=== PATIENT | male | born 2000 | race African-American/Black ===

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

== ENCOUNTER 2022-06-07 14:48 | Outpatient (CLI) | payer OTHER, BC, SELFPAY ==
--- NOTE | ~2022-06-07 | CT_ITS ---
Noncontrast CT scan of the right wrist CLINICAL HISTORY: Scaphoid fracture TECHNIQUE: Axial noncontrast imaging of the right wrist was performed. Sagittal and coronal reformatt ed images were performed. Dose reduction technique was used on this scan by utilizing automated expos ure control and iterative reconstruction technique. The dose-length product (DLP) was 320.11 mGy-cm. Findings: There is a transverse, nondisplaced fracture through the waist of the scaphoid. Osseous ali gnment remains near anatomic. Questionable minimal increased sclerosis of the proximal scaphoid pole. Remaining osseous structures are intact. Joint spaces are intact. Flexor and extensor tendons are grossly intact. No distinct soft tissue abnormality identified. No ma ss lesion or fluid collection evident. IMPRESSION: Transverse, nearly nondisplaced fracture through the waist of the scaphoid. Questionable minimal increased sclerosis of the proximal scaphoid pole. If there is any concern for e taylor changes of AVN of the proximal pole, then consider MR to better evaluate the underlying marrow s ignal characteristics. Reviewed, dictated and finalized at location M. IMPRESSION: Transverse, nearly nondisplaced fracture through the waist of the scaphoid. Questionable minimal increased sclerosis of the proximal scaphoid pole. If ther e is any concern for early changes of AVN of the proximal pole, then consider M R to better evaluate the underlying marrow signal characteristics.
== END 2022-06-07 14:49 | disposition home or self-care (01) ==
PROVIDERS: PCP Internal Medicine; Visit Provider Orthopaedic Surgery Hand Surgery
DX: S62.001D Unspecified fracture of navicular [scaphoid] bone of right wrist, subsequent encounter for fracture with routine healing (principal); T14.90XD Injury, unspecified, subsequent encounter
CPT/HCPCS: 73200

== ENCOUNTER 2022-08-21 10:58 | Outpatient (CLI) | payer OTHER, BC, SELFPAY ==
--- NOTE | ~2022-08-21 | XR_ITS ---
XR chest 2V DATE: 08/21/2022 11:21 INDICATION: Cough for 2 months. Shortness of breath. TECHNIQUE: PA and lateral views COMPARISON: 04/12/2004 portable AP chest FINDINGS: Normal heart size. No hilar or mediastinal enlargement. No pulmonary infiltrate or consolid ation, pleural effusion or pulmonary vascular congestion or pneumothorax. IMPRESSION: No active cardiopulmonary disease Reviewed, dictated and finalized at location B.
== END 2022-08-21 10:59 | disposition home or self-care (01) ==
PROVIDERS: PCP Internal Medicine; Visit Provider Internal Medicine
DX: R05.9 Cough, unspecified (principal)
CPT/HCPCS: 71046

== ENCOUNTER 2023-12-08 17:34 | Emergency (ER) | payer OTHER, SELFPAY ==
--- NOTE | ~2023-12-08 | CT_ITS ---
EXAMINATION: CT brain wo con DATE: 12/08/2023 18:12 INDICATION: Head injury TECHNIQUE: Computed tomographic angiography (CTA) of the head was performed without and with 100 mL O mnipaque-350 intravenous contrast. Exam dose: 605.33 mGy-cm total exam DLP. Volume-rendered and ma ximum intensity projection 3D reconstructions of the intracranial arteries were created by the techno logist on a separate workstation. COMPARISON: 04/12/2004 CT brain FINDINGS: No intracranial mass lesion or hemorrhage or cerebrovascular accident, midline shift or mas s effect is evident. Normal ventricular size. Normal covington-white matter differentiation. No subdural or epidural hematoma. The orbital contents are unremarkable. There is soft tissue thickening in the inferomedial aspect of the left frontal sinus and left frontoe thmoid area. There is extensive opacification of the left ethmoid air cells and opacification of the upper aspect of the included left maxillary sinus. The included paranasal sinuses and mastoid air cells are otherwise normally developed and aerated. No fracture or bone destruction of the cranial vault. IMPRESSION: No acute intracranial abnormality or skull fracture Left frontal, ethmoid and maxillary sinusitis Reviewed, dictated and finalized at Location A. Reviewed, dictated and finalized at location A.
[2023-12-08 17:36] VITALS: BP 137/107; PULSE 90; RESP 18; TEMP 36.8; O2SAT 100
--- NOTE | 2023-12-08 18:56 | ED.GENADULT ---
HPI - General Adult General Chief complaint: Head Injury Stated complaint: Head Injury Time Seen by Provider: 12/08/23 17:51 History of Present Illness HPI narrative: Patient is a 23-year-old male who presents to the emergency department this afternoon complaining of a headache after sustaining a head injury while playing soccer. Patient states that he was trying to hit the ball with his head and another player got in the way causing the patient to trip and fall backward hitting the back of his head on the ground. Patient states that he was told that he was out for approximately 10 seconds. Patient states that he was able to get up after a while and has been ambulating since then without any issues. Patient states initially shortly after the head injury he did have some floaters in his vision and felt slightly dizzy but those symptoms have now resolved. Patient denies any focal weakness, numbness and tingling. Denies any issues with gait and denies any ataxia. Patient is complaining of mild scrotal pain which he believes is due to being hit by another player. No additional symptoms or concerns at this time. Related Data Home Medications Medication Instructions Recorded Confirmed hydrocodone 2.5 mg-acetaminophen 1 tablet PO Q6H PRN 04/06/23 04/06/23 325 mg tablet ondansetron HCl 4 mg tablet 4 mg PO Q6H 04/06/23 04/06/23 Allergies Allergy/AdvReac Type Severity Reaction Status Date / Time No Known Allergies Allergy Unknown Verified 12/08/23 17:40 Review of Systems Review of Systems: All systems are reviewed and are negative unless stated otherwise in the HPI. [facility] Family History Family History Grandparent Diabetes mellitus Social History Social History Smoking status: Never smoker Alcohol intake: current Alcohol use details: varies Lack of Transportation: No Lack of Food: Never True Current Housing: I Have Housing Concerned About Future Housing: No Difficulty Paying Gas/Electric Bills: No Difficulty Paying for Meds: No Currently Unemployed: No Education: High School Diploma/GED Difficulty w/ Childcare or Family Care: No Exam Narrative: General: Alert, awake, afebrile, in no acute distress. HEENT: PERRL, no rhinorrhea, no post nasal drip, oropharynx clear. Cardiovascular: Regular rate and rhythm, no murmurs, rubs or gallops, no peripheral edema. Respiratory: Clear to auscultation bilaterally, no tachypnea, no wheezing, no rhonchi, no rubs, no respiratory distress. Abdomen: Soft, nontender, nondistended, no rebound, no guarding, no peritoneal signs. Genital: Exam performed of presence of female nurse archives technician revealing normal male external genitalia, no tenderness to palpation, swelling or ecchymosis. Musculoskeletal: No joint swelling or deformity, normal muscle tone. Back: No midline tenderness to palpation over the cervical, thoracic, and lumbar spine, no step-offs or deformities. Skin: No rashes or petechia, no signs of infection. Neurological: Alert and oriented to person, place, and time. Follows all commands. 5/5 motor strength in the bilateral upper and lower extremity, sensation intact bilateral upper and lower extremity, speech is clear and fluent, gait intact and normal. Course Vital Signs Vital signs: Vital Signs Temperature 98.3 F 12/08/23 17:36 Pulse Rate 90 12/08/23 17:36 Respiratory Rate 18 12/08/23 17:36 Blood Pressure 137/107 H 12/08/23 17:36 Pulse Oximetry 100 12/08/23 17:36 Oxygen Delivery Room Air 12/08/23 17:36 Temperature 98.3 F 12/08/23 17:36 Pulse Rate 90 12/08/23 17:36 Respiratory Rate 18 12/08/23 17:36 Blood Pressure 137/107 H 12/08/23 17:36 Pulse Oximetry 100 12/08/23 17:36 Oxygen Delivery Room Air 12/08/23 18:10 Medical Decision Making MDM Narrative Medical decision making narrative:
== END 2023-12-08 19:15 | disposition home or self-care (01) ==
PROVIDERS: Emergency Provider Emergency Medicine; PCP Internal Medicine
DX: S09.90XA Unspecified injury of head, initial encounter (principal); W01.0XXA Fall on same level from slipping, tripping and stumbling without subsequent striking against object, initial encounter; Y93.66 Activity, soccer; J32.2 Chronic ethmoidal sinusitis; J32.1 Chronic frontal sinusitis; J32.0 Chronic maxillary sinusitis
CPT/HCPCS: 70450; 99284

== ENCOUNTER 2024-01-30 23:22 | Emergency (ER) | payer OTHER, SELFPAY ==
[2024-01-30 23:27] VITALS: BP 137/77; PULSE 83; RESP 16; TEMP 36.9; O2SAT 98
[2024-01-31] MEDS: AMOXICILLIN/CLAVULANATE K 875-125 MG TAB 1 TABLET PO (00:21)
[2024-01-31] MEDS: TETANUS,DIPHTHERIA,AC PERTUSSIS ADULT (0.5 ML) BOOSTRIX IM (00:24)
--- NOTE | 2024-01-31 00:25 | ED.ANIMALBIT ---
HPI - Animal Bite General Chief Complaint: Animal Bite Stated Complaint: Dog bite Time Seen by Provider: 01/30/24 23:44 Source: patient Mode of arrival: ambulatory Limitations: no limitations History of Present Illness HPI narrative: Patient is a 23-year-old male who presents the ED with report of dog bite to his right wrist. Patient reports he was bit by his own dog. He states his dog was startled by an animal that was outside. He sustained a puncture wound and laceration to his right volar wrist. Dog is up-to-date on its vaccines. Patient's tetanus status is not up-to-date. Patient denies any other injuries. No numbness. Related Data Home Medications Medication Instructions Recorded Confirmed hydrocodone 2.5 mg-acetaminophen 1 tablet PO Q6H PRN 04/06/23 04/06/23 325 mg tablet ondansetron HCl 4 mg tablet 4 mg PO Q6H 04/06/23 04/06/23 Allergies Allergy/AdvReac Type Severity Reaction Status Date / Time No Known Allergies Allergy Unknown Verified 12/08/23 17:40 Review of Systems Review of Systems: All systems reviewed & are unremarkable except as noted in HPI. All systems reviewed & are unremarkable except as noted in HPI and below PMFSH Family History Family History Grandparent Diabetes mellitus Social History Social History Smoking status: Never smoker Alcohol intake: current Alcohol use details: varies Lack of Transportation: No Lack of Food: Never True Current Housing: I Have Housing Concerned About Future Housing: No Difficulty Paying Gas/Electric Bills: No Difficulty Paying for Meds: No Currently Unemployed: No Education: High School Diploma/GED Difficulty w/ Childcare or Family Care: No Exam Narrative: GENERAL: Well appearing, well-nourished, non-toxic, in no acute distress. HEAD: Normocephalic, atraumatic. RESPIRATORY: Airway patent, respirations nonlabored. CARDIOVASCULAR: Regular rate and rhythm. Radial pulses intact and easily palpable. MUSCULOSKELETAL: Moves all extremities. No gross deformities. Small puncture wound with superficial abrasion crossing through puncture wound to right volar wrist. No active bleeding. No deeper lacerations. No FB. Sensation intact. Old previous scar to volar wrist from previous surgery. SKIN: Warm, dry, normal color. NEURO: A&O X3. Speech clear. No ataxic movements. PSYCHIATRIC: Appropriate mood and affect. Normal interaction. Course Vital Signs Vital signs: Vital Signs Temperature 98.5 F 01/30/24 23:27 Pulse Rate 83 01/30/24 23:27 Respiratory Rate 16 01/30/24 23:27 Blood Pressure 137/77 01/30/24 23:27 Pulse Oximetry 98 01/30/24 23:27 Temperature 98.5 F 01/30/24 23:27 Pulse Rate 83 01/30/24 23:27 Respiratory Rate 16 01/30/24 23:27 Blood Pressure 137/77 01/30/24 23:27 Pulse Oximetry 98 01/30/24 23:27 MDM - Animal Bite MDM Narrative Medical decision making narrative: Tetanus updated in the ER. Patient started on Augmentin. Rx sent to pharmacy. Dog is up-to-date on its vaccines. Wound is superficial and does not require repair or further imaging. Patient given wound care instructions and return precautions. Discharged in stable condition. Patient also mentioned having a cough for the past 1 week. Offered to obtain viral swabs or chest x-ray, however patient politely declined. Irish Schmidt sent to pharmacy. Discussed further fyst-jdd-swtyyri therapies to try. Medical Records Attestation: I reviewed the patient's medical records. Discharge Plan Discharge Clinical Impression: Dog bite Patient Disposition: Home, Self-Care Condition: Stable Instructions: Antibiotic Form, Animal Bite (ED) Additional Instructions: Take antibiotics as prescribed. Recommend ice to wrist, Tylenol/ibuprofen as needed for pain. Wash wound daily with soap and water. Bandage if needed. Monitor for signs of infection, such as drainage, warm sensation to wrist, redness streaking up or down arm, fevers, or any other symptoms of concern. Prescriptions: New amoxicillin-pot clavulanate 875-125 mg tablet 1 tablet PO Q12H 7 Days Qty: 14 0RF benzonatate 200 mg capsule 200 mg PO TID PRN (Reason: cough) Qty: 20 0RF No Action hydrocodone-acetaminophen 2.5-325 mg tablet 1 tablet PO Q6H PRN ondansetron HCl 4 mg tablet 4 mg PO Q6H fluticasone propion-salmeterol [Advair Diskus] 100-50 mcg/dose blister with device 1 inh inhalation Q12H Qty: 60 0RF Follow-up/Referrals: Misha Salgado DO [Primary Care Provider] - Stand Alone Forms: Work/School Release IP Time of Disposition: 00:27
== END 2024-01-31 00:32 | disposition home or self-care (01) ==
PROVIDERS: Emergency Provider Physician Assistant; PCP Internal Medicine
DX: S60.871A Other superficial bite of right wrist, initial encounter (principal); W54.0XXA Bitten by dog, initial encounter; Z23 Encounter for immunization
CPT/HCPCS: 90471; 90715; 99283; A9270

== ENCOUNTER 2024-04-24 11:52 | Emergency (ER) | payer OTHER, SELFPAY ==
--- OUTSIDE RECORDS SUMMARY | 2024-04-24 11:56 | XMS_ITS | Clinical Summary ---
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 Gender Identity Not on file Sexual Orientation Not on file Plan of Treatment Health Maintenance Due Date Last Done Comments Annual Physical 2004 HPV Vaccines (1 - Male 3-dos e series) 2016 Meningococcal B Vaccine (1 o f 2 - Standard) 2017 Hepatitis C 2019 DTaP, Tdap and Td Vaccines ( 1 - Tdap) 2020 Hepatitis B Vaccines (1 of 3 - 19+ 3-dose series) 2020 COVID-19 Vaccine ( - 2023-2 5 season) 2023 Influenza Adult (#1) 2023 Meningococcal Vaccine Aged Out No kane wilberto eligible based on patient's age to complete this topic Pneumococcal Vaccine: Pediat rics (0 to 5 Years) and At-Risk Patients (6 to 64 Years) Aged Out No longer eligible b ased on patient's age to complete this topic RSV Immunizations Under 20 Months Aged Out No longer eligible based on patient's age to complete this topic
--- OUTSIDE RECORDS SUMMARY | 2024-04-24 11:56 | XMS_ITS | Clinical Summary ---
Author Organization [facility] Address [address] [place] [address] Care Team Providers Care Foster Care Therapist Name Role Phone Selena Mckeon MD Primary Care Provider [phone] Allergies No known active allergies Medications irkcnnis-ccbl-UX -calcium-mins 27 mg iron-400 mcg tablet Active EPIDUO FORTE 0.3-2.5 % gel with pump APPLY TO FACE QHS 2 09/27/2017 Active Active Problems Problem Noted Date Diagnosed Date Pelvis tilted 09/07/2016 Immunizations Name Administration Dates Next Due DTaP 07/19/2002,2001,2001 ,2001 DTaP, Unspecified 11/23/2006 HPV, Quadrivalent 08/05/2014,11/05/2013,08/02/19 14 Hep A, Unspecified 06/21/2007,11/23/2006 Hep B / HiB 04/14/2002,2001,2001 Hep B, Unspecified 06/21/2007 IPV 2001,2001,2001 Influenza, Unspecified 04/14/2002,02/11/2002 MMR 11/23/2006,04/14/2002 Meningococcal B, unspecified 03/14/2018,09/06/19 18 Meningococcal MCV4P (Menactra) 09/05/2017,2012 Pneumococcal Conjugate 7-Valent 04/14/2002,10/12,2001,2001 Tdap 07/31/2012 Varicella 11/23/2006,07/19/2002 Surgical History Surgery Date Site/Laterality Comments ARM SURGERY 03/19/2005 - 03/18/2006 Medical History Medical History Date Comments Personal history of other di seases of the musculoskeletal system and connective tissue History of scoliosis - (Adde d by TW Conv) 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 - (Added by TW Conv) H/O febrile seizure 2004 Family History Medical History Relation Name Comments No Known Problems Father Low Back Pain Mother Family history of low back pain - (Added by TW Conv) Relation Name Status Comments Father Mother Social History Tobacco Use Types Packs/Day Years Used Date Smoking Tobacco: Never Smokeless Tobacco: Never Sex and Gender Information Value Date Recorded Sex Assigned at Not on file 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 Gender Identity Not on file Sexual Orientation Not on file Obstetrics History Last Filed Vital Signs Vital Sign Reading Time Taken Comments Blood Pressure 136/80 03/10/2023 6:03 PM FOOD PRODUCTION WORKER Pulse 68 03/10/2023 6:03 PM FOOD PRODUCTION WORKER Temperature 36.6 C (97.8 F) 03/10/2023 6:03 PM FOOD PRODUCTION WORKER Respiratory Rate 20 03/10/2023 6:03 PM FOOD PRODUCTION WORKER Oxygen Saturation 99% 03/10/2023 6:03 PM FOOD PRODUCTION WORKER Inhaled Oxygen Concentration - - Weight 104.3 kg (230 lb) 03/10/2023 6:03 PM FOOD PRODUCTION WORKER Height 187.2 cm (6' 1.7 ) 11/19/2019 3:01 PM CDT Body Mass Index 29.77 11/19/2019 3:01 PM CDT Plan of Treatment Health Maintenance Due Date Last Done Comments Depression Screening 2001 Hepatitis C Screening 2001 Meningococcal B Vaccine (1 o f 2 - Patient Seeks Protection) 2017 03/14/2018, 09/05/2017 Regular Well Visit/Exam 18-64 2019 DTaP/Tdap/Td Vaccine (7 - Td or Tdap) 07/31/2022 07/31/2012, 11/23/2006, 07/19/2002, Additional history exists Influenza Vaccine (#1) 2023 04/14/2002, 2001 Pneumococcal vaccine <65 Completed 003, 2001, 2001, Additional history exists Varicella Vaccines Completed 11/23/2006, 07/19/2002 Hepatitis B Screening Completed 06/21/2007 , 04/14/2002, 2001, Additional history exists HPV Vaccines Completed 08/05/2014, 10/18, 08/01/2013 Insurance [id number] [place] [address] [facility] ACCESS Member Subscriber Plan / Payer (Ef fective 2018-Present) Name:Lot[employer] Sherry Ashok Relation to Subscriber:Other Relationship Name:RASHEEDA GAUTAM Subscriber ID:Not on file Date of :1971 Phone:[phone] (Home) Address: [address] [place] [address] Payer ID:[id number] (NAIC) Type:BC SUDHAKAR Address: [address] [employer]M ACCESS Member Subscriber Plan / Payer ( fective 2018-Present) Name:AleenaSherry robert Ashok Relation to Subscriber:Other Relationship Name:ALEENASABINAMANUELPAULINA Subscriber ID:Not on file Date of :1971 (Home) [facility] [address] [facility] [place] [address] Payer ID:[id number] (NAIC) Type:[facility] Address: [address] Care Teams Foster Care Therapist Relationship Specialty Start Date End Date Selena Mckeon MD [address] [place] [address] PCP - General 09/15/16
--- OUTSIDE RECORDS SUMMARY | 2024-04-24 11:56 | XMS_ITS | Referral Summary ---
Author Organization [facility] Address [address] [place] [address] Care Team Providers Care Hard Candy Batch Mixer Name Role Phone Selena Mckeon MD Primary Care Provider [phone] Allergies No known active allergies Medications holqcoii-axcu-WM -calcium-mins 27 mg iron-400 mcg tablet Active [...] Conjugate 7-Valent 04/14/2002,10/12,2001,2001 Tdap 07/31/2012 Varicella 11/23/2006,07/19/2002 Social History Tobacco Use Types Packs/Day Years Used Date Smoking Tobacco: Never Smokeless Tobacco: Never Sex and Gender Information Value Date Recorded Sex Assigned at Not on file 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 Gender Identity Not on file Sexual Orientation Not on file Last Filed Vital Signs Vital Sign Reading Time Taken Comments Blood Pressure 136/80 03/10/2023 6:03 PM CERTIFIED BENCH JEWELER TECHNICIAN Pulse 68 03/10/2023 6:03 PM CERTIFIED BENCH JEWELER TECHNICIAN Temperature 36.6 C (97.8 F) 03/10/2023 6:03 PM CERTIFIED BENCH JEWELER TECHNICIAN Respiratory Rate 20 03/10/2023 6:03 PM CERTIFIED BENCH JEWELER TECHNICIAN Oxygen Saturation 99% 03/10/2023 6:03 PM CERTIFIED BENCH JEWELER TECHNICIAN Inhaled Oxygen Concentration - - Weight 104.3 kg (230 lb) 03/10/2023 6:03 PM CERTIFIED BENCH JEWELER TECHNICIAN Height 187.2 cm (6' 1.7 ) 11/19/2019 3:01 PM CDT Body Mass Index 29.77 11/19/2019 3:01 PM CDT Plan of Treatment Not on file Insurance [facility] [employer]M ACCESS Member Subscriber Plan / Payer ( fective 2018-Present) Name:Sherry Gautam Ashok Relation to Subscriber:Other Relationship Name:RASHEEDA GAUTAM Subscriber ID:Not on file Date of :1971 Phone:[phone] (Home) Address: [address] [place] [address] Payer ID:[id number] (NAIC) Type:myQaa Address: [address] [employer]M ACCESS Member Subscriber Plan / Payer ( fective 2018-Present) Name:Sherry Gautam Ashok Relation to Subscriber:Other Relationship Name:ALEENARASHEEDA MUHAMMAD Subscriber ID:Not on file Date of :1971 (Home) Address: [address] [place] [address] Payer ID:[id number] (NAIC) Type:myQaa Address: [address] Care Teams Hard Candy Batch Mixer Relationship Specialty Start Date End Date Selena Mckeon MD [address] [place] [address] PCP - General 09/15/16
[2024-04-24 12:05] VITALS: BP 142/69; PULSE 107; RESP 16; TEMP 36.9; O2SAT 99
--- NOTE | 2024-04-24 13:54 | ED_ITS ---
HPI - URI/Sore Throat General Chief Complaint: Upper Respiratory Infection <Amanda Diaz PA-C - Last Filed: 04/24/24 14:03> Stated Complaint: upper respiratory symptoms <Amanda Diaz PA-C - Last Filed: 04/24/24 14:03> Time Seen by Provider: 04/24/24 13:54 <DAYAN Samayoa Last Filed: 04/24/24 14:03> Focused HPI: Patient is a 24 y/o male who presents to the ED with c/o URI sx's. Patient reports he has been sick for the past 1.5 weeks with chills, sore throat, body aches, fatigue, mild cough, rhinorrhea, congestion. States sx's seemed to be improving but became worse again yesterday after working outside. Denies fevers, SOB, difficulty swallowing or breathing. GENERAL: Well-appearing, well-nourished, and in no acute distress. HEAD: Normocephalic, atraumatic. ENT: Mild posterior pharynx erythema. Tonsillar enlargement bilaterally. Uvula is still midline. No protrusion of soft palate. No significant exudate. Toleraing secretions. No stridor. Slight muffled quality to voice. Rhinorrhea. CHEST: Clear to auscultation. ?No respiratory distress. HEART: Regular rate and rhythm.? NEURO: ?Alert and oriented x3. Patient screened in triage and initial orders placed.? ?Additional care and disposition to be based upon?diagnostic testing and treatment. <Amanda Diaz PA-C - Last Filed: 04/24/24 14:03> Source: patient <DAYAN Samayoa Last Filed: 04/24/24 14:03> Mode of arrival: ambulatory <Amanda Diaz PA-C - Last Filed: 04/24/24 14:03> Limitations: no limitations <DAYAN Samayoa Last Filed: 04/24/24 14:03> History of Present Illness HPI Narrative: agree with the HPI as described above. <Sammy Eason MD - Last Filed: 04/25/24 00:36> Related Data Home Medications: Home Medications ?Medication ?Instructions ?Recorded ?Confirmed ?Last Taken ?Type ondansetron HCl 4 mg tablet 4 mg PO Q6H 04/06/23 02/29/24 Unknown History <Amanda Diaz PA-C - Last Filed: 04/24/24 14:03> Allergies/Adverse Reactions: Allergies Allergy/AdvReac Type Severity Reaction Status Date / Time No Known Allergies Allergy Unknown Verified 04/24/24 12:08 <Amanda Diaz PA-C - Last Filed: 04/24/24 14:03> Review of Systems Review of Systems: As reviewed above <Sammy Eason MD - Last Filed: 04/25/24 00:36> PMF Family History Family History: Family History Grandparent Diabetes mellitus <Amanda Diaz PA-C - Last Filed: 04/24/24 14:03> Social History Social History: Social History Smoking status: Never smoker Alcohol intake: current Alcohol use details: varies Lack of Transportation: No Lack of Food: Never True Current Housing: I Have Housing Concerned About Future Housing: No Difficulty Paying Gas/Electric Bills: No Difficulty Paying for Meds: No Currently Unemployed: No Education: High School Diploma/GED Difficulty w/ Childcare or Family Care: No <Amanda Diaz PA-C - Last Filed: 04/24/24 14:03> Exam Narrative: GENERAL: Well-appearing, well-nourished, and in no acute distress. HEAD: Normocephalic, atraumatic. ENT: Mild posterior pharynx erythema. Tonsillar enlargement bilaterally. Uvula is still midline. No protrusion of soft palate. No significant exudate. Tolerating secretions. No stridor. Slight muffled quality to voice. Rhinorrhea. CHEST: Clear to auscultation. ?No respiratory distress. HEART: Regular rate and rhythm.? NEURO: ?Alert and oriented x3. <Sammy Eason MD - Last Filed: 04/25/24 00:36> Course Vital Signs Vital signs: Vital Signs Temperature 36.9 C 04/24/24 12:05 Pulse Rate 107 H 04/24/24 12:05 Respiratory Rate 16 04/24/24 12:05 Blood Pressure 142/69 H 04/24/24 12:05 Pulse Oximetry 99 04/24/24 12:05 Oxygen Delivery Room Air 04/24/24 12:05 Temperature 38.1 C H 04/24/24 16:10 Pulse Rate 100 04/24/24 16:10 Respiratory Rate 16 04/24/24 16:10 Blood Pressure 132/73 04/24/24 16:10 Pulse Oximetry 96 04/24/24 16:10 Oxygen Delivery Room Air 04/24/24 15:53 <Amanda Diaz PA-C - Last Filed: 04/24/24 14:03> Vital Signs Temperature 36.9 C 04/24/24 12:05 Pulse Rate 107 H 04/24/24 12:05 Respiratory Rate 16 04/24/24 12:05 Blood Pressure 142/69 H 04/24/24 12:05 Pulse Oximetry 99 04/24/24 12:05 Oxygen Delivery Room Air 04/24/24 12:05 Temperature 38.1 C H 04/24/24 16:10 Pulse Rate 100 04/24/24 16:10 Respiratory Rate 16 04/24/24 16:10 Blood Pressure 132/73 04/24/24 16:10 Pulse Oximetry 96 04/24/24 16:10 Oxygen Delivery Room Air 04/24/24 15:53 <Sammy Eason MD - Last Filed: 04/25/24 00:36> MDM - URI/Sore Throat MDM Narrative Medical decision making narrative: MSE by ALETA in triage. <Amanda Diaz PA-C - Last Filed: 04/24/24 14:03> MSE by ALETA in triage. 24-year-old otherwise healthy male presenting with upper respiratory infection symptoms as well as pharyngitis type symptoms associated with sore throat, headache, fever, chills. He is febrile here 38.1 received oral Tylenol. Initially slightly tachycardic but resolved. Blood pressure at 132/73, no tachycardia, hypoxia. patient's swabs came back positive for influenza a as well as group A strep. We discussed the plan of care going forward which will be for antibiotics for the next 7 days to treat his strep throat and he received Decadron here in the emergency department for his pharyngitis type symptoms with improvement. We went over plan of care for symptomatic control of his fever, pain as well as return precautions which he verbalized understanding. Patient is safe for discharge home at this time. <Sammy Eason MD - Last Filed: 04/25/24 00:36> Medical Records Attestation: I reviewed the patient's medical records. <Sammy Eason MD - Last Filed: 04/25/24 00:36> Lab Data Attestation: I reviewed the patient's lab results. <Sammy Eason MD - Last Filed: 04/25/24 00:36> Labs: Lab Results 04/24/24 04/24/24 Range/Units 13:59 14:00 Influenza A (RT-PCR) Positive A (Negative) Influenza B (RT-PCR) Negative (Negative) RSV (RT-PCR) Negative (Negative) SARS-CoV-2 RNA (RT-PCR) Negative (Negative) Group A Strep (PCR) Detected A (Negative) <Amanda Diaz PA-C - Last Filed: 04/24/24 14:03> Lab Results 04/24/24 04/24/24 Range/Units 13:59 14:00 Influenza A (RT-PCR) Positive A (Negative) Influenza B (RT-PCR) Negative (Negative) RSV (RT-PCR) Negative (Negative) SARS-CoV-2 RNA (RT-PCR) Negative (Negative) Group A Strep (PCR) Detected A (Negative) <Sammy Eason MD - Last Filed: 04/25/24 00:36> Discharge Plan Discharge Clinical Impression: Strep throat, Influenza A <Amanda Diaz PA-C - Last Filed: 04/24/24 14:03> Patient Disposition: Home, Self-Care <DAYAN Samayoa Last Filed: 04/24/24 14:03> Condition: Stable <DAYAN Samayoa Last Filed: 04/24/24 14:03> Instructions: Antibiotic Form, Strep Throat (DC), Influenza (ED) <Amanda Diaz PA-C - Last Filed: 04/24/24 14:03> Additional Instructions: he did test positive for influenza as well as strep throat we will send you home with antibiotics for next 7 days. Follow-up with regular doctor, return with any new or worsening concerns such as difficulty swallowing, difficulty breathing, fevers not responding to Tylenol. You can take Tylenol and ibuprofen alternating every 4 hours, [id number] medications for flu- like symptoms. <Amanda Diaz PA-C - Last Filed: 04/24/24 14:03> Patient Language: [place] Islander <Amanda Diaz PA-C - Last Filed: 04/24/24 14:03> Prescriptions: New amoxicillin-pot clavulanate 875-125 mg tablet 1 tablet PO Q12H 7 Days Qty: 14 0RF No Action ondansetron HCl 4 mg tablet 4 mg PO Q6H benzonatate 200 mg capsule 200 mg PO TID PRN (Reason: cough) Qty: 20 0RF clarithromycin 500 mg tablet 500 mg PO Q12H Qty: 20 0RF Rx Instructions: Take with food <Amanda Diaz PA-C - Last Filed: 04/24/24 14:03> Follow-up/Referrals: PHYSICIAN,PERSONNEL PLACEMENT SPECIALIST [Non-Staff] - <Amanda Diaz PA-C - Last Filed: 04/24/24 14:03> Stand Alone Forms: Work/School Release IP <Amanda Diaz PA-C - Last Filed: 04/24/24 14:03> Time of Disposition: 16:17 <Amanda Diaz PA-C - Last Filed: 04/24/24 14:03> 16:17 <Sammy Eason MD - Last Filed: 04/25/24 00:36>
[2024-04-24] MEDS: dexAMETHasone SOD PHOS INJ 10 MG/ML 1 ML VIAL IM (14:26)
[2024-04-24 15:04] LABS: Strep Group A RT-PCR DETECTED (Negative)
[2024-04-24 15:17] LABS: Influenza A QL RT-PCR Positive (Negative); Influenza B QL RT-PCR Negative (Negative); RSV RNA, RT-PCR Negative (Negative); SARS-CoV-2 RNA PCR Negative (Negative)
--- OUTSIDE RECORDS SUMMARY | 2024-04-24 15:18 | XMS_ITS | Clinical Summary ---
Author Organization 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
--- OUTSIDE RECORDS SUMMARY | 2024-04-24 15:18 | XMS_ITS | Clinical Summary ---
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 Gender Identity Not on file Sexual Orientation Not on file Obstetrics History Last Filed Vital Signs Vital Sign Reading Time Taken Comments Blood Pressure 136/80 03/10/2023 6:03 PM INBOUND INGREDIENT LOGISTICS SPECIALIST Pulse 68 03/10/2023 6:03 PM INBOUND INGREDIENT LOGISTICS SPECIALIST Temperature 36.6 C (97.8 F) 03/10/2023 6:03 PM INBOUND INGREDIENT LOGISTICS SPECIALIST Respiratory Rate 20 03/10/2023 6:03 PM INBOUND INGREDIENT LOGISTICS SPECIALIST Oxygen Saturation 99% 03/10/2023 6:03 PM INBOUND INGREDIENT LOGISTICS SPECIALIST Inhaled Oxygen Concentration - - Weight 104.3 kg (230 lb) 03/10/2023 6:03 PM INBOUND INGREDIENT LOGISTICS SPECIALIST Height 187.2 cm (6' 1.7 ) 11/19/2019 [...] HPV Vaccines Completed 08/05/2014, 10/18, 08/01/2013 Insurance [id number] [place] [address] [facility] ANTHEM ACCESS Member Subscriber Plan / Payer (Ef fective 2018-Present) Name:[employer] Sherry Ashok Relation to Subscriber:Other Relationship Name:RASHEEDA GAUTAM Subscriber ID:Not on file Date of :1971 Phone:[phone] (Home) Address: [address] [place] [address] Payer ID:[id number] (NAIC) Type:[employer] Address: [address] ANTHEM ACCESS Member Subscriber Plan / Payer ( fective 2018-Present) Name:AleenaSherry robert Ashok Relation to Subscriber:Other Relationship Name:ALEENASABINAMANUELPAULINA Subscriber ID:Not on file Date of :1971 (Home) [facility]: [address] [facility] [place] [address] Payer ID:[id number] (NAIC) Type:[facility] Address: [address] Care Teams Photo Specialist Relationship Specialty Start Date End Date Selena Mckeon MD [address] [place] [address] PCP - General 09/15/16
--- OUTSIDE RECORDS SUMMARY | 2024-04-24 15:18 | XMS_ITS | Referral Summary ---
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 Gender Identity Not on file Sexual Orientation Not on file Last Filed Vital Signs Vital Sign Reading Time Taken Comments Blood Pressure 136/80 03/10/2023 6:03 PM OFFICE ADMINISTRATION INSTRUCTOR Pulse 68 03/10/2023 6:03 PM OFFICE ADMINISTRATION INSTRUCTOR Temperature 36.6 C (97.8 F) 03/10/2023 6:03 PM OFFICE ADMINISTRATION INSTRUCTOR Respiratory Rate 20 03/10/2023 6:03 PM OFFICE ADMINISTRATION INSTRUCTOR Oxygen Saturation 99% 03/10/2023 6:03 PM OFFICE ADMINISTRATION INSTRUCTOR Inhaled Oxygen Concentration - - Weight 104.3 kg (230 lb) 03/10/2023 6:03 PM OFFICE ADMINISTRATION INSTRUCTOR Height 187.2 cm (6' 1.7 ) 11/19/2019 3:01 PM CDT Body Mass Index 29.77 11/19/2019 3:01 PM CDT Plan of Treatment Not on file Insurance [facility] ANTHEM ACCESS Member Subscriber Plan / Payer ( fective 2018-Present) Name:Sherry Gautam Ashok Relation to Subscriber:Other Relationship Name:RASHEEDA GAUTAM Subscriber ID:Not on file Date of :1971 Phone:[phone] (Home) Address: [address] [place] [address] Payer ID:[id number] (NAIC) Type:[employer] Address: [address] ANTHEM ACCESS Member Subscriber Plan / Payer ( fective 2018-Present) Name:Sherry Gautam Ashok Relation to Subscriber:Other Relationship Name:ALEENARASHEEDA MUHAMMAD Subscriber ID:Not on file Date of :1971 (Home) Address: [address] [place] [address] Payer ID:[id number] (NAIC) Type:[employer] Address: [address] Care Teams Rubber Boots And Shoes Repairer Relationship Specialty Start Date End Date Selena Mckeon MD [address] [place] [address] PCP - General 09/15/16
[2024-04-24 15:53] VITALS: O2SAT 99
[2024-04-24] MEDS: AMOXICILLIN/CLAVULANATE K 875-125 MG TAB 1 TABLET PO (16:05)
[2024-04-24 16:10] VITALS: BP 132/73; PULSE 100; RESP 16; TEMP 38.1; O2SAT 96
[2024-04-24] MEDS: ACETAMINOPHEN 500 MG TABLET 1000 MG PO (16:17)
== END 2024-04-24 16:46 | disposition home or self-care (01) ==
PROVIDERS: Physician Assistant; Emergency Provider Student in an Organized Health Care Education/Training Program
DX: J10.1 Influenza due to other identified influenza virus with other respiratory manifestations (principal); Z20.822 Contact with and (suspected) exposure to COVID-19
CPT/HCPCS: 87637; 87651; 96372; 99283; A9270; J1100

== ENCOUNTER 2025-03-11 06:26 | Emergency (ER) | payer OTHER, SELFPAY ==
[2025-03-11 06:26] VITALS: BP 151/78; PULSE 88; RESP 16; TEMP 36.3; O2SAT 100
--- OUTSIDE RECORDS SUMMARY | 2025-03-11 06:27 | XMS_ITS | Clinical Summary ---
Author Organization [facility] Address [facility] [place] [address] Care Team Providers Care Juvenile Corrections Officer Name Role Phone Unavailable Primary Care Provider Unavailabl e Social History Tobacco Use Types Packs/Day Years Used Date Smoking Tobacco: Never Assessed Sex and Gender Information Value Date Recorded Sex Assigned at Not on file Legal Sex Male 8:54 PM BSW Gender Identity Not on file Sexual Orientation [...] - 19+ 3-dose series) 2020 COVID-19 Vaccine (1 - 2024-2 6 season) 2024 Influenza Adult (#1) 2024 Hepatitis A Vaccines Aged Out No long er eligible based on patient's age to complete this topic Meningococcal Vaccine Aged Out No kane wilberto eligible based on patient's age to complete this topic Pneumococcal Vaccine: Pediat rics (0 to 5 Years) and At-Risk Patients (6 to 49 Years) Aged Out No longer eligible b ased on patient's age to complete this topic RSV Immunizations Under 20 Months Aged Out No longer eligible based on patient's age to complete this topic
[2025-03-11 07:38] LABS: Strep Group A RT-PCR NOT DETECTED (Negative)
[2025-03-11 07:50] LABS: Influenza A QL RT-PCR Negative (Negative); Influenza B QL RT-PCR Negative (Negative); RSV RNA, RT-PCR Negative (Negative); SARS-CoV-2 RNA PCR Negative (Negative)
[2025-03-11 09:20] VITALS: BP 151/82; PULSE 58; RESP 14; O2SAT 100
--- NOTE | 2025-03-11 09:38 | ED_ITS ---
HPI - General Adult General Chief complaint: Neck Pain/Injury Stated complaint: stiff neck x 18 hours Time Seen by Provider: 03/11/25 08:43 History of Present Illness HPI narrative: 24-year-old male presenting to the emergency department for evaluation for tightness of his left trapezius. Patient reports symptoms started yesterday. Patient did take some medications for pain control but the symptoms did not help. Patient denies any falls or injuries. Patient states pain is worsened when looking to the left. Patient denies any viral symptoms. Related Data Home Medications ?Medication ?Instructions ?Recorded ?Confirmed ?Last Taken ?Type ondansetron HCl 4 mg tablet 4 mg PO Q6H 04/06/2302/28 Unknown History Allergies Allergy/AdvReac Type Severity Reaction Status Date / Time No Known Allergies Allergy Unknown Verified 03/11/25 09:18 Review of Systems Review of Systems: All systems reviewed & are unremarkable except as noted in HPI and below PMFSH Family History Family History Grandparent Diabetes mellitus Social History Social History Smoking status: Never smoker Alcohol intake: current Alcohol use details: varies Lack of Transportation: No Lack of Food: Never True Current Housing: I Have Housing Concerned About Future Housing: No Difficulty Paying Gas/Electric Bills: No Difficulty Paying for Meds: No Currently Unemployed: No Education: High School Diploma/GED Difficulty w/ Childcare or Family Care: No Exam Narrative: APPEARANCE: Well appearing, no pain, no distress, well-nourished. HEAD: normocephalic, atraumatic. EYES: PERRLA/EOMI, conjunctivae clear. NOSE: Normal no drainage EARS:TMS clear with good light reflex. THROAT: Pharynx clear, no exudate. NECK: Supple. No adenopathy, no masses. RESPIRATORY: Airway patent, respirations nonlabored. Clear to auscultation bilaterally, no rales, rhonchi, wheezing. CARDIOVASCULAR: Regular rate and rhythm without murmurs rubs or gallops. ABDOMINAL: Soft, nontender, nondistended, normal bowel sounds MUSCULOSKELETAL: Left-sided previous muscle strain NEURO: Alert. Cranial nerves II through XII intact. Good gait. Good coordination SKIN: Warm, dry. Normal Color Course Vital Signs Vital signs: Vital Signs Temperature 97.4 F L 03/11/25 06:26 Pulse Rate 88 03/11/25 06:26 Respiratory Rate 16 03/11/25 06:26 Blood Pressure 151/78 H 03/11/25 06:26 Pulse Oximetry 100 03/11/25 06:26 Oxygen Delivery Room Air 03/11/25 06:26 Temperature 97.4 F L 03/11/25 06:26 Pulse Rate 58 L 03/11/25 09:20 Respiratory Rate 14 03/11/25 09:20 Blood Pressure 151/82 H 03/11/25 09:20 Pulse Oximetry 100 03/11/25 09:20 Oxygen Delivery Room Air 03/11/25 06:26 MDM MDM Narrative Medical decision making narrative: 24-year-old male presents emergency department for evaluation for left-sided trapezius muscle strain. Patient has no associated numbness or weakness. Patient has no viral syndromes. Patient does have reproducible tenderness to the left trapezius into the cervical portion of the trapezius. Patient was provided anti-inflammatories and started on muscle relaxant. Patient family were updated on the results of the workup and plan for treatment for home. All questions concerns were addressed. Differential Diagnosis Differential Diagnosis: COVID, RSV, influenza, strep throat, trapezius strain, cervical strain Lab Data [facility] Lab Attestation statement: I personally reviewed the patient's lab results. Labs: Lab Results 03/11/25 Range/Units 06:41 Influenza A (RT-PCR) Negative (Negative) Influenza B (RT-PCR) Negative (Negative) RSV (RT-PCR) Negative (Negative) SARS-CoV-2 RNA (RT-PCR) Negative (Negative) Group A Strep (PCR) Not detected (Negative) Discharge Plan Discharge Clinical Impression: Strain of cervical portion of left trapezius muscle Patient Disposition: Home Condition: Stable Instructions: Antibiotic Form, Cervical Strain (ED) Additional Instructions: Naproxen as scheduled for the next 5 days. Flexeril as needed for muscle spasm. Have close follow-up with your primary care physician. Patient Language: Guatemalan Prescriptions: New naproxen [Naprosyn] 500 mg tablet 500 mg PO BID 7 Days Qty: 14 0RF cyclobenzaprine 10 mg tablet 10 mg PO BID PRN (Reason: muscle spasm) Qty: 14 0RF No Action ondansetron HCl 4 mg tablet 4 mg PO Q6H benzonatate 200 mg capsule 200 mg PO TID PRN (Reason: cough) Qty: 20 0RF clarithromycin 500 mg tablet 500 mg PO Q12H Qty: 20 0RF Rx Instructions: Take with food amoxicillin-pot clavulanate 875-125 mg tablet 1 tablet PO Q12H 7 Days Qty: 14 0RF Follow-up/Referrals: UNKNOWN,DOCTOR [Non-Staff]
--- OUTSIDE RECORDS SUMMARY | 2025-03-11 09:46 | XMS_ITS | Clinical Summary ---
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
--- OUTSIDE RECORDS SUMMARY | 2025-03-11 09:46 | XMS_ITS | Clinical Summary ---
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 Immunizations Immunization Administration Dates Next Due DTaP 07/19/2002,2001,2001 ,2001 [...] (Added by TW Conv) H/O febrile seizure 2005 Family History Medical History Relation Name Comments [...] on file 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 Gender Identity Not on file Sexual Orientation Not on file Last Filed Vital Signs Vital Sign Reading Time Taken Comments Blood Pressure 136/80 03/10/2023 6:03 PM HOSPITAL PHARMACIST Pulse 68 03/10/2023 6:03 PM HOSPITAL PHARMACIST Temperature 36.6 C (97.8 F) 03/10/2023 6:03 PM HOSPITAL PHARMACIST Respiratory Rate 20 03/10/2023 6:03 PM HOSPITAL PHARMACIST Oxygen Saturation 99% 03/10/2023 6:03 PM HOSPITAL PHARMACIST Inhaled Oxygen Concentration - - Weight 104.3 kg (230 lb) 03/10/2023 6:03 PM HOSPITAL PHARMACIST Height 187.2 cm (6' 1.7) 11/19/2019 3:01 PM CDT Body Mass Index 29.77 11/19/2019 3:01 PM CDT Plan of Treatment Health Maintenance Due Date Last Done Comments Depression Screening 2001 Hepatitis C Screening 2001 Meningococcal B Vaccine (1 o f 2 - Standard) 04/11/2018 03/14/2018, 09/05/2017 Regular Well Visit/Exam 18-64 2019 DTaP/Tdap/Td Vaccine (7 - Td or Tdap) 07/31/2022 07/31/2012, 11/23/2006, 07/19/2002, Additional history exists Influenza Vaccine (#1) 2024 04/14/2002, 2001 Pneumococcal vaccine <65 Completed 003, 2001, 2001, Additional history exists Varicella Vaccines Completed 11/23/2006, 07/19/2002 Hepatitis B Screening Completed 06/21/2007 , 04/14/2002, 2001, Additional history exists HPV Vaccines Completed 08/05/2014, 10/18, 08/01/2013 Insurance [facility] ANTHEM ACCESS [facility] AN[employer]M ACCESS Member Subscriber Plan / Payer ( fective 2018-Present) Name:PrestonninaSherry farah Relation to Subscriber:Other Relationship Name:PRESTONNINAMANUEL FarahPAULINA Subscriber ID:Not on file Date of :1971 (Home) [facility] [facility] [place] [address] Payer ID:[id number] (NAIC) Type:[facility] Address: [address] Care Teams Writer Editor Relationship Specialty Start Date End Date Selena Mckeon MD [address] [place] [address] PCP - General 09/15/16
[2025-03-11] MEDS: CYCLOBENZAPRINE HCL 10 MG TABLET PO (09:57)
[2025-03-11] MEDS: KETOROLAC (*BKC) 60 MG/2 ML VIAL IM (09:59)
== END 2025-03-11 10:04 | disposition home or self-care (01) ==
LOC: ANHED 09:44
PROVIDERS: Emergency Medicine; Emergency Provider Emergency Medicine
DX: S16.1XXA Strain of muscle, fascia and tendon at neck level, initial encounter (principal); Z20.822 Contact with and (suspected) exposure to COVID-19; X58.XXXA Exposure to other specified factors, initial encounter
CPT/HCPCS: 87637; 87651; 96372; 99283; A9270; J1885